=== PATIENT | female | born 1955 | race Asian ===

== ENCOUNTER 2017-12-10 11:54 | Emergency (ER) | payer OTHER ==
[~2017-12-10] VITALS: Ht 162.6 cm; Wt 69.0 kg
[2017-12-10] MEDS ORDERED: SILV50CR31 TP (12:17)
[2017-12-10 12:35] VITALS: BP 116/74
[2017-12-10] MEDS ORDERED: SILVER SULFADIAZINE 1% 25 GM CREAM TP ONE (13:00)
== END 2017-12-10 13:28 | disposition home or self-care (01) ==
LOC: EMS 11:57
DX: T25.122A Burn of first degree of left foot, initial encounter (principal); X12.XXXA Contact with other hot fluids, initial encounter; Y93.89 Activity, other specified; Y92.89 Other specified places as the place of occurrence of the external cause; Y99.8 Other external cause status
CPT/HCPCS: 16000; 99284; Z7610